=== PATIENT | female | born 1980 | race Caucasian/White ===

== ENCOUNTER → 2017-03-03 | Outpatient (CLI) | payer MEDICAID ==
[~2017-03-03] MED LIST: ENBREL50 MG/ML SC; FLEXERIL10 MG PO; NAPROSYN 500MG500 MG PO; ULTRAM 50 MG TA50 MG PO
--- NOTE | 2017-03-03 14:21 | RADIOLOGY REPORT PS360 ---
LUMBAR SPINE 5 VIEWS HISTORY: LBP low back pain with psoriatic arthritis Patient Age: 36 years: Female Ordering Physician: FRANCIS ISRAEL TECHNIQUE: 5 view lumbar spine COMPARISON : CT abdomen only 10/03/2010 FINDINGS Vertebral bodies are intact . No compression fractures. Borderline/slight mild disc space narrowing suggested posteriorly at L5/S1 . Mild/ Moderate Facet arthropathy bilaterally at L5/S1 Otherwise disc spaces are fairly well-maintained . Scant subtle levocurvature at the thoracolumbar junction; with minimal less than 10 degree dextrocurvature from L2-L4 on this nonstanding study. Pedicles intact. No spondylolysis nor listhesis is evident. Mild sclerotic changes inferior SI joints. Right greater than left SI joints remain patent BTL clips at lower pelvis. The vascular clips at the RLQ from cholecystectomy IMPRESSION: L5/S1.-mild disc space narrowing with mild/moderate facet arthropathy bilaterally at this level Subtle levocurvature at the thoracolumbar junction with gradual dextrocurvature of the lumbar spine dextro. Minimal sclerotic changes inferior SI joints right greater than left.
--- NOTE | 2017-03-03 23:35 | RADIOLOGY REPORT PS360 ---
CERVICAL SPINE 4 OR 5 VIEWS HISTORY: NECK PAINneck pain psoriatic arthritis history. Patient Age: 36 years: Female Ordering Physician: FRANCIS ISRAEL TECHNIQUE: Five-view cervical spine COMPARISON : Previous C-spine series from 2009 FINDINGS Cervical vertebral bodies are intact and disc spaces are fairly well maintained. Prevertebral soft tissues are normal. Alignment C-spine normal. The neural foramen widely patent and facets appear satisfactory. Apices of lungs clear. C1-C2 relationships normal. No erosions. IMPRESSION: Negative cervical spine series.
== END ==
LOC: RAD 11:55
DX: M54.5 Low back pain (principal); M54.2 Cervicalgia

== ENCOUNTER → 2017-03-25 | Outpatient (CLI) | payer MEDICAID | LOC: RAD 14:33 | DX: M25.511 Pain in right shoulder (principal) ==

== ENCOUNTER → 2017-05-26 | Outpatient (CLI) | payer MEDICAID ==
[2017-05-26 14:42] LABS: HEMOGLOBIN 13.6 g/dL (12.2-16.2); LYMPH # 2.5 K/mm3 (0.7-4.5); LYMPH % 27.9 % (10-50.0)
[2017-05-26 15:02] LABS: BUN 12 mg/dL (7-18)
[2017-05-26 15:03] LABS: GFR (ESTIMATED) 112 ML/MIN (59-)
== END ==
LOC: LAB 13:51
PROVIDERS: Nurse Practitioner Family
DX: R53.83 Other fatigue (principal)